=== PATIENT | female | born 1935 | race Caucasian/White ===

== ENCOUNTER 2022-09-19 15:11 | Outpatient (RCR) | payer MEDICARE, BC, SELFPAY | END 2023-05-02 23:59 | disposition home or self-care (01) | PROVIDERS: PCP Family Medicine; Visit Provider Orthopaedic Surgery Orthopaedic Surgery of the Spine | DX: R26.9 Unspecified abnormalities of gait and mobility (principal); Z51.89 Encounter for other specified aftercare | CPT/HCPCS: 97110; 97162 ==

== ENCOUNTER 2023-09-02 10:45 | Outpatient (RCR) | payer MEDICARE, BC, SELFPAY | END 2023-09-10 14:03 | disposition home or self-care (01) | PROVIDERS: PCP Family Medicine; Visit Provider Family Medicine | DX: M54.2 Cervicalgia (principal); R26.81 Unsteadiness on feet; Z51.89 Encounter for other specified aftercare | CPT/HCPCS: 97110; 97112; 97140; 97162; 97164 ==

== ENCOUNTER 2024-01-28 17:18 | Outpatient (CLI) | payer MEDICARE, BC, SELFPAY | END 2024-01-28 17:19 | disposition home or self-care (01) | LOC: AMB 01-31 03:30 | PROVIDERS: PCP Family Medicine; Visit Provider Student in an Organized Health Care Education/Training Program | DX: S29.9XXA Unspecified injury of thorax, initial encounter (principal); W18.30XA Fall on same level, unspecified, initial encounter; Y92.008 Other place in unspecified non-institutional (private) residence as the place of occurrence of the external cause | CPT/HCPCS: A0425; A0429 ==

== ENCOUNTER 2024-01-28 17:33 | Emergency (ER) | payer MEDICARE, BC, SELFPAY ==
[2024-01-28] VITALS (14 sets, daily range): BP systolic 115–190; BP diastolic 61–91; PULSE 60–74; RESP 16; TEMP 36.5; O2SAT 97–98; BMI 26.1
--- NOTE | 2024-01-28 17:49 | CT_ITS ---
Patient: KARELY JASMINE Facility:?[facility] RIS Patient ID:?[id number] Site Patient ID:?[id number]. Site :?[id number] Study:?CT-Spine Lumbar W/O-01/28/2024 6:40:34 PM Ordering Physician:ANTHONY Final Report: CLINICAL HISTORY: Trauma. TECHNIQUE: Helical CT acquisition of the lumbar spine was performed. Coronal and sagittal reformations were performed and interpreted. COMPARISON: Lumbar spine radiographs dated 03/25/2023. FINDINGS: There is an acute appearing fracture involving the left-sided superior endplate of L1, with mild displacement of fracture fragments involving both the anterior and posterior cortex of the vertebral body, noting mild retropulsion of the posterior fracture fragment which appears to indent the left ventral thecal sac. There is mild (approximately 10-15%) loss of vertebral body height, asymmetric to the left. There is a subtle, minimally displaced fracture through the right transverse process of L2. Postsurgical changes related to prior L5-S1 posterior fusion with dual rods and transpedicular screws. Lumbar spondylosis with mild degenerative grade 1 anterolisthesis of L3 on L4. Decreased mineralization of the osseous structures. The paravertebral soft tissues are unremarkable. IMPRESSION: 1. Acute fracture of the left-sided superior endplate of L1, with mild (10-15%) loss of vertebral body height, with mild displacement of fracture fragments involving both the anterior and posterior cortex of the vertebral body. There is mild retropulsion of the posterior fracture fragment which likely indents the left ventral thecal sac. 2. Subtle, minimally displaced fracture through the right transverse process of L2. Please note that all CT scans at this facility use dose modulation, iterative reconstruction, and/or weight-based dosing when appropriate to reduce radiation dose to as low as reasonably achievable. Dictated by Geoffrey Sims MD @ 01/28/2024 7:02:17 PM Signed by:?Geoffrey Sims MD @01/28/2024 7:02:17 PM (Electronic Signature)
--- NOTE | 2024-01-28 17:52 | ED.BACK ---
HPI - Back Pain/Injury General Date Seen: 01/28/24 Chief Complaint: Back Injury/Pain Stated Complaint: Fall Time Seen by Provider: 01/28/24 17:34 Source: patient and EMS Mode of arrival: EMS Limitations: no limitations History of Present Illness HPI Narrative: patient is an 88-year-old female presenting to the emergency department for low back pain. She states she got of the car when she then quickly turned around and does know she does loss of balance so her shoes got stuck on the ground but she fell over falling into the wall. She states she did not hit her head but since the fall has been having lower back pain and has been unable to walk. She does have some lightheadedness and dizziness but this is normal for her not any different compared to her baseline. Due to the pain EMS was called and she was brought to the emergency department. Denies any numbness or weakness. Says the pain seems worse on the left side the lower back and goes straight across her back. Does not radiate anywhere else. Denies abdominal pain, chest pain, shortness of breath, weakness, numbness, fevers, chills. No other concerns noted Related Data Home Medications Medication Instructions Recorded Confirmed atorvastatin 20 mg tablet 20 mg PO QPM 01/28/24 01/28/24 omeprazole 20 mg capsule,delayed 20 mg PO DAILY 01/28/24 01/28/24 release Allergies Allergy/AdvReac Type Severity Reaction Status Date / Time oxycodone Allergy Verified 01/28/24 17:52 Review of Systems Status of ROS: Reports: 10 or more systems reviewed and unremarkable except as noted in History and below PFSH PFS Medical History Fracture of left wrist (08/20/12) ?S62.102A - Fracture of unspecified carpal bone, left wrist, initial encounter for closed fracture (ICD-10) Surgical History 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) ?Z96.659 - Presence of unspecified artificial knee joint (ICD-10) History of tonsillectomy ?Z90.89 - Acquired absence of other organs (ICD-10) History of section (~1961) ?Z98.891 - History of uterine scar from previous surgery (ICD-10) Status post cataract extraction and insertion of intraocular lens (03/20/13) ?Z98.49 - Cataract extraction status, unspecified eye (ICD-10) ?Z96.1 - Presence of intraocular lens (ICD-10) Social History Smoking Status: Never smoker Do you use any of these nicotine containing products: None Second hand tobacco smoke exposure: No How often do you have a drink containing alcohol: never AUDIT-C Alcohol total score: 0 Non-prescribed substance use: denies use service: No Exam Narrative: Exam Narrative: Const: Well-nourished, Well-developed, in mild distress Eyes: PERRL, no conjunctival injection, and symmetrical lids HENT: Atraumatic external nose and ears. Moist mucous membranes. Neck: Symmetric, trachea midline, No thyromegaly. CVS: RRR, No murmurs or gallops. Peripheral pulses 2+ and equal in all extremities RESP: Unlabored respiratory effort. Clear to auscultation bilaterally. GI: Nontender/Nondistended, No rebound or guarding. MSK:Extremities w/o deformity, tenderness palpation lower lumbar around L5 Skin: Warm, Dry. No rashes or lesions. Neuro: Normal Muscle tone, No focal neurological deficits. Psych: Awake, Alert, & Oriented x3. Appropriate mood and affect. Const: Vital Signs, click to edit/add: Vital Signs - 24 hr 01/28/24 17:43 01/28/24 18:51 01/28/24 19:00 Temperature 97.7 F Pulse Rate 62 61 Pulse Rate [Pulse Oximeter] 74 Respiratory Rate 16 Blood Pressure Blood Pressure [Ri ght Upper Arm] 190/77 H Pulse Oximetry 98 98 97 Oxygen Delivery Me thod Room Air 01/28/24 19:02 01/28/24 19:03 01/28/24 19:30 Temperature Pulse Rate 64 60 69 Pulse Rate [Pulse Oximeter] Respiratory Rate Blood Pressure 151/71 H Blood Pressure [Ri ght Upper Arm] Pulse Oximetry 97 97 97 Oxygen Delivery Me thod 01/28/24 19:31 01/28/24 19:32 01/28/24 20:00 Temperature Pulse Rate 70 68 69 Pulse Rate [Pulse Oximeter] Respiratory Rate Blood Pressure 148/71 H Blood Pressure [Ri ght Upper Arm] Pulse Oximetry 97 98 97 Oxygen Delivery Me thod 01/28/24 20:02 01/28/24 20:03 01/28/24 20:30 Temperature Pulse Rate 67 66 63 Pulse Rate [Pulse Oximeter] Respiratory Rate Blood Pressure 142/64 H Blood Pressure [Ri ght Upper Arm] Pulse Oximetry 98 98 98 Oxygen Delivery Me thod 01/28/24 20:31 01/28/24 20:45 Temperature Pulse Rate 65 73 Pulse Rate [Pulse Oximeter] Respiratory Rate Blood Pressure 139/61 115/91 H Blood Pressure [Ri ght Upper Arm] Pulse Oximetry 97 97 Oxygen Delivery Me thod Course Vital Signs Vital signs: Initial Vital Signs Temperature 97.7 F 01/28/24 17:43 Temperature Source Temporal Artery Scan 01/28/24 17:43 Pulse Rate 74 01/28/24 17:43 Pulse Rhythm Regular 01/28/24 17:43 Pulse Strength 3+ Normal 01/28/24 17:43 Respiratory Rate 16 01/28/24 17:43 Blood Pressure 190/77 H 01/28/24 17:43 Blood Pressure Mean 114 H 01/28/24 17:43 Blood Pressure Position Semi-Fowlers 01/28/24 17:43 Pulse Oximetry 98 01/28/24 17:43 Oxygen Delivery Method Room Air 01/28/24 17:43 Vital Signs Temperature 97.7 F 01/28/24 17:43 Pulse Rate 74 01/28/24 17:43 Respiratory Rate 16 01/28/24 17:43 Blood Pressure 190/77 H 01/28/24 17:43 Pulse Oximetry 98 01/28/24 17:43 Oxygen Delivery Method Room Air 01/28/24 17:43 Temperature 97.7 F 01/28/24 17:43 Pulse Rate 73 01/28/24 20:45 Respiratory Rate 16 01/28/24 17:43 Blood Pressure 115/91 H 01/28/24 20:45 Pulse Oximetry 97 01/28/24 20:45 Oxygen Delivery Method Room Air 01/28/24 17:43 Medications Administered Medications: Discontinued Medications Generic Name Dose Route Start Last Admin Trade Name Freq PRN Reason Stop Dose Admin Ketorolac Tromethamine 30 mg 01/28/24 17:49 01/28/24 17:59 Ketorolac 30 Mg/Ml Inj IM 01/28/24 17:50 30 mg ONCE ONE Administration MDM - Back Pain/Injury MDM Narrative Medical decision making narrative: patient is an 88-year-old female presenting after fall. By her description this sounds like it was a mechanical fall. While she does have lightheadedness dizziness this is her baseline. She is adamant she did not hit her head and has denied any neck pain. despite this, concerning her age, I do think is reasonable do a CT scan of her head and neck to make sure there are no other injuries. She will be given Toradol for pain. CT scan of her lumbar spine x-rays of her hip were ordered. CT scan of the head, cervical spine, pelvis shows no acute concerning abnormalities. A CT scan of the lumbar spine there were is a fracture of the L1 consistent with where her pain is with some retropulsed fragments are pushed against the thecal sac. I went to re-evaluate the patient in she is having no neurological symptoms right now. There is no signs of cauda equina syndrome at this time. Says the pain is tolerable and is dullness nature. Is not requesting any further pain medication. Considering and. Pressure on the thecal sac I would be hesitant to send this patient home as she could have worsening issues and should be seen by spine surgeon. Initially want to be transferred to [facility]. After speaking to them since she was a trauma she would have to go to [facility]. Due to that the patient would prefer [place] instead. [facility] was spoken to and I talked to the ED provider Dr. Menard. He accepted the patient for transfer. She will go by ground ambulance. She is agreeable to this plan. Imaging Data CT scan head: Attestation: I have reviewed the pertinent imaging results. Radiologist's impression: 1. No CT evidence of acute intracranial abnormality or closed head injury. 2. Senescent changes including generalized parenchymal volume loss and findings likely reflecting sequela of chronic small vessel ischemia. Please note that all CT scans at this facility use dose modulation, iterative reconstruction, and/or weight-based dosing when appropriate to reduce radiation dose to as low as reasonably achievable. Dictated by Geoffrey Sims MD @ 01/28/2024 6:50:[address] scan cervical spine: Attestation: I have reviewed the pertinent imaging results. Radiologist's impression: No acute displaced fracture or traumatic malalignment of the cervical spine. Please note that all CT scans at this facility use dose modulation, iterative reconstruction, and/or weight-based dosing when appropriate to reduce radiation dose to as low as reasonably achievable. Dictated by Geoffrey Sims MD @ 01/28/2024 6:53:[address] scan lumbar spine: Attestation: I have reviewed the pertinent imaging results. Radiologist's impression: 1. Acute fracture of the left-sided superior endplate of L1, with mild (10-15%) loss of vertebral body height, with mild displacement of fracture fragments involving both the anterior and posterior cortex of the vertebral body. There is mild retropulsion of the posterior fracture fragment which likely indents the left ventral thecal sac. 2. Subtle, minimally displaced fracture through the right transverse process of L2. Please note that all CT scans at this facility use dose modulation, iterative reconstruction, and/or weight-based dosing when appropriate to reduce radiation dose to as low as reasonably achievable. Dictated by Geoffrey Sims MD @ 01/28/2024 7:02:[address] scan pelvis: Attestation: I have reviewed the pertinent imaging results. Radiologist's impression: 1. No acute fracture involving the pelvis. 2. Postop changes L5-S1 and left hip. Please note that all CT scans at this facility use dose modulation, iterative reconstruction, and/or weight-based dosing when appropriate to reduce radiation dose to as low as reasonably achievable. Dictated by Ashkan Del Cid MD @ 01/28/2024 7:12:47 PM Discharge Plan Discharge Clinical Impression: Closed lumbar vertebral fracture Qualifiers: Encounter type: initial encounter Lumbar vertebra fracture level: L1 Fracture morphology: unspecified fracture morphology Qualified Code(s): S32.019A - Unspecified fracture of first lumbar vertebra, initial encounter for closed fracture Patient Disposition: Xfer Other Condition: Stable Prescriptions: No Action atorvastatin 20 mg tablet 20 mg PO QPM omeprazole 20 mg capsule,delayed release(DR/EC) 20 mg PO DAILY Stand Alone Forms: [employer] Info Instructions
--- NOTE | 2024-01-28 17:54 | CT_ITS ---
Patient: KARELY JASMINE Facility:?[facility] RIS Patient ID:?[id number] Site Patient ID:?[id number]. Site :?1935 Study:?CT-Head W/O-01/28/2024 6:36:58 PM Ordering Physician:ANTHONY Final Report: CLINICAL HISTORY Trauma. TECHNIQUE Standard helical CT image acquisition through the head was performed. COMPARISON Head CT dated 10/01/2020. FINDINGS No CT evidence of acute intracranial hemorrhage, extra-axial collection, mass effect or midline shift. Le-white matter differentiation is preserved. Age- appropriate [id number] generalized parenchymal with resultant prominence of cerebral sulci and the ventricular system. Patchy and confluent hypoattenuation in the white matter of both hemispheres likely reflects sequela of chronic small vessel ischemia. Intracranial atherosclerotic calcification. No displaced calvarial fracture. The orbits are unremarkable. The paranasal sinuses and mastoid air cells are well aerated. IMPRESSION 1. No CT evidence of acute intracranial abnormality or closed head injury. 2. Senescent changes including generalized parenchymal volume loss and findings likely reflecting sequela of chronic small vessel ischemia. Please note that all CT scans at this facility use dose modulation, iterative reconstruction, and/or weight-based dosing when appropriate to reduce radiation dose to as low as reasonably achievable. Dictated by Geoffrey Sims MD @ 01/28/2024 6:50:12 PM Signed by:?Geoffrey Sims MD @01/28/2024 6:50:12 PM (Electronic Signature)
--- NOTE | 2024-01-28 17:54 | CT_ITS ---
Patient: KARELY JASMINE Facility:?[facility] R[facility] Patient ID:?[id number] Site Patient ID:?[id number]. Site :?1935 Study:?CT-Spine Cervical W/O-01/28/2024 6:37:54 PM Ordering Physician:ANTHONY Final Report: CLINICAL HISTORY: Trauma. TECHNIQUE: Helical CT acquisition of the cervical spine was performed. Coronal and sagittal reformations were performed and interpreted. COMPARISON: None available. FINDINGS: There is no evidence of acute displaced fracture or traumatic malalignment of the cervical spine. The facets are well aligned. Vertebral body heights are maintained without evidence of significant compression deformity. No evidence of significant trauma at the craniocervical junction. Chronic appearing fracture the C7 spinous process. Advanced cervical spondylosis. Advanced degenerative changes involving the atlantodental articulation. The visualized prevertebral soft tissues are unremarkable. The visualized lung apices are unremarkable. IMPRESSION: No acute displaced fracture or traumatic malalignment of the cervical spine. Please note that all CT scans at this facility use dose modulation, iterative reconstruction, and/or weight-based dosing when appropriate to reduce radiation dose to as low as reasonably achievable. Dictated by Geoffrey Sims MD @ 01/28/2024 6:53:08 PM Signed by:?Geoffrey Sims MD @01/28/2024 6:53:08 PM (Electronic Signature)
[2024-01-28] MEDS: KETOROLAC 30 MG/ML inj IM (17:59)
--- NOTE | 2024-01-28 18:22 | CT_ITS ---
Patient: KARELY JASMINE Facility:?[facility] RIS Patient ID:?[id number] Site Patient ID:?[id number]. Site :?1935 Study:?CT-Pelvis W/O-01/28/2024 6:41:30 PM Ordering Physician:ANTHONY Final Report: INDICATION: Fell; lower back pain. TECHNIQUE: CT pelvis without intravenous contrast; coronal and sagittal reformats. FINDINGS: Posterior lumbar fusion L5-S1 with anatomic alignment and intact hardware. Internal fixation fracture left hip. No evidence of acute fracture or dislocation. No bone or soft tissue abnormalities. IMPRESSION: 1. No acute fracture involving the pelvis. 2. Postop changes L5-S1 and left hip. Please note that all CT scans at this facility use dose modulation, iterative reconstruction, and/or weight-based dosing when appropriate to reduce radiation dose to as low as reasonably achievable. Dictated by Ashkan Del Cid MD @ 01/28/2024 7:12:47 PM Signed by:?Ashkan Del Cid MD @01/28/2024 7:12:47 PM (Electronic Signature)
== END 2024-01-28 20:54 | disposition other institution (70) ==
PROVIDERS: Emergency Provider Student in an Organized Health Care Education/Training Program; PCP Family Medicine
DX: S32.019A Unspecified fracture of first lumbar vertebra, initial encounter for closed fracture (principal); W01.0XXA Fall on same level from slipping, tripping and stumbling without subsequent striking against object, initial encounter
CPT/HCPCS: 70450; 72125; 72131; 72192; 96372; 99283; 99285; J1885

== ENCOUNTER 2024-06-11 10:00 | Outpatient (RCR) | payer MEDICARE, BC, SELFPAY | END 2024-10-09 23:59 | disposition home or self-care (01) | PROVIDERS: PCP Family Medicine; Visit Provider Family Medicine | DX: H81.10 Benign paroxysmal vertigo, unspecified ear (principal); S32.011D Stable burst fracture of first lumbar vertebra, subsequent encounter for fracture with routine healing; M62.81 Muscle weakness (generalized); R26.9 Unspecified abnormalities of gait and mobility; R26.81 Unsteadiness on feet; Z51.89 Encounter for other specified aftercare | CPT/HCPCS: 97110; 97112; 97140; 97162 ==

== ENCOUNTER 2025-05-04 16:12 | Outpatient (RCR) | payer MEDICARE, BC, SELFPAY | END 2025-07-12 15:58 | disposition home or self-care (01) | PROVIDERS: PCP Family Medicine; Visit Provider Family Medicine | DX: H81.10 Benign paroxysmal vertigo, unspecified ear (principal); S32.011D Stable burst fracture of first lumbar vertebra, subsequent encounter for fracture with routine healing; R26.81 Unsteadiness on feet; Z51.89 Encounter for other specified aftercare | CPT/HCPCS: 97110; 97161 ==

== ENCOUNTER 2025-05-18 23:41 | Outpatient (CLI) | payer MEDICARE, BC, SELFPAY | END 2025-05-18 23:42 | disposition home or self-care (01) | PROVIDERS: PCP Family Medicine; Visit Provider Orthopaedic Surgery | DX: S49.91XA Unspecified injury of right shoulder and upper arm, initial encounter (principal); S79.911A Unspecified injury of right hip, initial encounter; W01.0XXA Fall on same level from slipping, tripping and stumbling without subsequent striking against object, initial encounter; Y92.038 Other place in apartment as the place of occurrence of the external cause | CPT/HCPCS: A0425; A0427 ==

== ENCOUNTER 2025-05-19 00:25 | Inpatient (IN) | payer MEDICARE, BC, SELFPAY ==
[2025-05-19] VITALS (24 sets, daily range): BP systolic 124–183; BP diastolic 51–78; PULSE 60–84; RESP 14–18; TEMP 36.1–36.9; O2SAT 94–100; BMI 24.9; BMI 25.5
--- OUTSIDE RECORDS SUMMARY | 2025-05-19 00:27 | XMS_ITS | Clinical Summary ---
Author Organization [facility] Address [address] [place] [address] Care Team Providers Care Cattle Manager Name Role Phone Beau Woods MD Primary Care Provider [phone] Source Comments You are receiving this document as you are listed as the primary care provider,follow-up provider, or the patient has been referred to you for consultation.This is in compliance with the Medicare andRegional Medical Centercaid EHR Incentive Program,which states Providers who transition their patient to another setting of careor provider of care or refers their patient to another provider of care shouldprovide summary care record for each transition of care or referral. [facility] Allerg[facility] No known active allergies Medications simvastatin (AKA ZOCOR) 20 MG tablet Take 20 mg by mouth nightly. 03/01/2015 Active Calcium Carbonate (CALCI-CHEW) 1250 (500 CA) MG chewable tablet Take 1 tablet by mouth daily (every 24 hours). 03/01/2015 Active omeprazole (AKA PRILOSEC) 10 MG capsule Take 10 mg by mouth daily (every 24 hours). 03/01/2015 Active omega-3 fatty acids (FISH OIL) 1000 MG capsule Take by mouth. 03/01/2015 Active Denosumab (PROLIA SC) 2 times yearly Active Active Problems No known active problems Social History Tobacco Use Types Packs/Day Years Used Date Smoking Tobacco: Former Cigarettes 1 22 0 03/01/1971 - 03/01/1993 Smokeless Tobacco: Never Comments Unknown Sex and Gender Information Value Date Recorded Sex Assigned at Not on file Legal Sex Female 11:50 PM CDT Gender Identity Not on file Sexual Orientation Not on file Last Filed Vital Signs Vital Sign Reading Time Taken Comments Blood Pressure 169/80 08/08/2022 11:23 AM CDT Pulse 72 08/08/2022 11:23 AM CDT Temperature - - Respiratory Rate - - Oxygen Saturation - - Inhaled Oxygen Concentration - - Weight 63.4 kg (139 lb 11.2 oz) 022 11:23 AM CDT Height 156.2 cm (5' 1.5) 08/08/2022 11 :23 AM CDT Body Mass Index 25.97 08/08/2022 11:23 AM CDT Plan of Treatment Health Maintenance Due Date Last Done Comments Medicare Annual Wellness Visit 1935 RSV Vaccine (1 - 1-dose 75+ series) 2012 COVID-19 Vaccine ( - season) 2024 01/29/2022, 06/09/2021, 12/20/2020, Additional history exists DTaP/Tdap/Td Vaccine (2 - Tdap) 08/16/2024 08/16/2014, 11/02/2004 Influenza Vaccine (#1) 2025 2, 06/27/2021, 06/24/2020, Additional history exists Pneumococcal Vaccine 50+ Yrs Completed 01/24/2015, 11/02/2004 Zoster/Shingles Vaccine Completed 09/25/20 18, 06/28/2018, 09/18/2007 Dexa Completed 08/23/2022, 10/31/2020 HepA Vaccine Aged Out No longer eligi ble based on patient's age to complete this topic HepB Vaccine Aged Out No longer eligi ble based on patient's age to complete this topic Hib Vaccine Aged Out No longer eligi ble based on patient's age to complete this topic MCV4 Vaccine Aged Out No longer eligi ble based on patient's age to complete this topic Meningococcal B Vaccine Aged Out No l onger eligible based on patient's age to complete this topic Procedures Procedure Name Priority Date/Time Associated Diagnosis Comments BONE DENSITY 08/23/2022 from Last 3 Months or Most Recently Relevant to Health Maintenance Results * BONE DENSITY (08/23/2022) Anatomical Region Laterality Modality Other us Interface Provider MD DUNAWAY/OTHER/AR Final Resu lt from Last 3 Months or Most Recently Relevant to Health Maintenance Insurance [id number] [facility] [place] [id number] MEDICARE BCBS MEDICARE SUPPLEMENT [id number] [place] [id number] Care Teams Cattle Manager Relationship Specialty Start Date End [place] [address] PCP - General Family Practice 08/08/22
--- OUTSIDE RECORDS SUMMARY | 2025-05-19 00:27 | XMS_ITS | Clinical Summary ---
Author Organization [employer] [facility] Address [address] [place] [address] Care Team Providers Care Urban Sociologist Name Role Phone Beau Woods MD Primary Care Provider Allergies Active Allergy Reactions Criticality Noted Date Comments Oxycodone Vomiting 01/08/2022 Patient states heavy chest Medications CALCIUM 600 + D 600 MG (1,500)-200 UNIT TABIndications:As ymptomatic postmenopausal status (age-related) (natural) take 2 pills a day 60 12 09/10/20 07 Active Additional Information Patient taking differently: 1 TabletOralTWICE DAILY WITH MEALS, Reported on 01/04/2025 Vvoyt-2-OOH-EPA-F tc Oil 1,000 mg (120 mg-180 mg) cap Take 1 Capsule by mouth once daily. Active acetaminophen (TYLENOL EXTRA STRGTH) 500 mg tabletIndications :Spondylolisthesi s of lumbar region,Spinal stenosis, lumbar region, with neurogenic claudication,Post operative pain after spinal surgery Take 2 Tablets (1,000 mg) by mouth every 6 hours. Max acetaminophen dose: 4000mg in 24 hrs. 0 03/18/20 22 Active atorvastatin 20 mg tabletIndications :Hyperlipidemia, unspecified hyperlipidemia type Take 1 Tablet (20 mg) by mouth at bedtime. 90 Tablet 3 03/31/20 25 Active omeprazole 20 mg Delayed-Release capsuleIndication s:Chronic GERD Take 1 Capsule (20 mg) by mouth once daily before a meal. 90 Capsule 3 03/31/20 25 Active Active Problems Problem Noted Date Diagnosed Date Neck pain, chronic 01/04/2025 Type 2 diabetes mellitus wit hout complication, without long-term current use of insulin 04/07/2024 Spinal stenosis, lumbar addy on, with neurogenic claudication 03/16/2022 Ocular migraine 08/14/2020 Overview (12/15/2020): MRI/MRA negative. Evaluation with eye provider agreed with diagnosis of ocular migraine. Skin cancer 08/09/2020 Overview (08/09/2020): Left Jaw line, BCC, superficial and nodular: Mohs 08/09/2020 [place] Adenomatous colon polyp 02/04/2018 Overview (02/04/2018): Colonoscopy 01/2018 polyp, repeat in 5 years Lumbar facet arthropathy with effusions 06/12/20 13 Total knee replacement status 03/28/2009 Osteoporosis, unspecified 08/11/2007 GERD (gastroesophageal reflux disease) Overview (12/15/2020): failed transitioin to Ranitidine 08/2017 Dyslipidemia BPPV (benign paroxysmal positional vertigo) Resolved Problems Problem Noted Date Diagnosed Date Resolved Date Spondylolisthesis of lumbar region 03/16/2022 02/22/2023 Prediabetes 12/25/2017 07/06/2024 Trochanteric bursitis of left hip 06/11/2013 02/22/2023 Gluteus medius tendinosis 06/11/2013 Benign positional vertigo 07/22/2009 terminal operations supervisor (current) use of anticoagulants 03/28/2009 12/15/2020 Overview (04/08/2009): INR goal 1.5-2.5 Osteoarthritis 10/08/2008 01/04/2025 Encounters Date Type Department Care Team Description 04/29/2025 Orders Only [facility] Scanner 1 scan: (1-Ord) [facility], 04/29/2025 04/15/2025 11:00 AM CDT Nurse/Clinic Staff Only [facility] [address] [place] [address] Immunization/Inject ion (PROLIA INJECTION ) 04/14/2025 Travel 04/05/2025 11:00 AM CDT Ancillary Procedure [facility] [address] [place] [address] 04/05/2025 Travel 03/31/2025 8:25 AM CDT Office Visit [facility] [address] [place] [address] [address] Beau Woods MD Medicare ANNUAL (subsequent) Visit (89 year old female); Lightheaded (Lightheaded/balanc e issues, pt reports falling x2 in the last month - leg weakness/tripping); Leg Pain/problem (Ankle/LE pain at night) 03/31/2025 Travel 03/26/2025 9:00 AM CDT Orders Only [facility] [address] [place] [address] [address] Lab, [place] 03/26/2025 Travel from Last 3 Months Immunizations Immunization Administration Dates Next Due AMB Influenza, IIV3 (Age >=3 years)(Flu Clinic Only) 08/20/2008 COVID-19 VACCINE SPIKEVAX (M ODERNA 50MCG/0.5ML) 12YO+ PFS 01/04/2025,07/06/2024,03/27/2024 COVID-19 vaccine (Wildfire Korea-Bio NTech 30mcg/0.3mL) 12YO+ BIVALENT PF, MDV 02/22/2023,08/29/2022 COVID-19 vaccine (Wildfire Korea-Bio NTech 30mcg/0.3mL) 12YO+ AIDAN-SUCROSE PF, MDV 01/29/2022 COVID-19 vaccine (Pfizer-Bio NTech 30mcg/0.3mL) PF, MDV 06/09/2021,12/20/2020,11/29/2020 Influenza A (H1N1), Inactivated 10/12/2009 Influenza RIV4 (Age 18+ Year s) PRESERV FREE 07/25/2019 Influenza Virus, Unspecified 07/14/2017 Influenza, High-dose Inactivated 024,07/13/2018,08/07/2017,08/15,08/16/2014 Influenza, High-dose Quadriv alent Inactivated 08/31/2023 Influenza, IIV3 (Age 6-35 mos) 09/03/2011 Influenza, IIV3 (Age >=3 years) 07/17/20 13,09/16/2010,08/20/2008,09/02,07/25/2006,09/03/2005,08/12/2004 ,08/02/2003 Influenza, IIV4 06/24/2020 Influenza, Inactivated AIIV4 (Age 65+ Years) Preserv Free 06/26/2022,06/27/2021 Pneumococcal Conj 20-valent (Prevnar 20) 02/22/2023 Pneumococcal Poly,23-Valent (Pneumovax) 11/02/2004,11/02/2004 Pneumococcal conj 13-Valent (Prevnar 13) 01/24/2015 RSV, Recombinant ADJ Reconst ituted (Arexvy 120MCG/0.5mL) 09/18/2024 Td (Age >=7 Years) 11/02/2004 Tdap 08/16/2014 Zoster (Shingrix-RZV, recombinant) 09/25/2018, Zoster (Zostavax-ZVL, live) 09/18/2007 Family History Medical History Relation Name Comments Psychiatric illness Child 1 Allergies Child 2 Other Child 3 migraine Dementia Father Heart attack Father Stroke Father Cancer Mother stomach Diabetes Mother Stroke Mother Cancer Other sibling Kidney cancer Sister Uterine cancer Sister Anesthesia Problem No Family History Cancer-breast No Family History Relation Name Status Comments Child 1 Child 2 Child 3 Father Mother Other Sister Social History Tobacco Use Types Packs/Day Years Used Date Smoking Tobacco: Former Cigarettes 1 29.8 1 962 - 07/17/1991 Smokeless Tobacco: Never Tobacco Cessation:Counseling Given: No Alcohol Use Standard Drinks/Week Comments Yes 0 (1 standard drink = 0.6 oz pur e alcohol) one glass of wine per day PHQ-2 Answer Date Recorded PHQ-2 TOTAL SCORE 1 03/31/2025 Social Connections Answer Date Recorded Do you often feel lonely or isolated from those around you? 0 03/31/2025 Alcohol Use Answer Date Recorded How often do you have a drink containing alcohol ? 4 12/07/2021 How many drinks containing a lcohol do you have on a typical day when you are drinking? 0 12/07/2021 How often do you have five or more drinks on one occasion? 0 12/07/2021 Financial Resource Strain Answer Date R ecorded Difficulty of Paying Living Expenses 3 03/31/2025 Difficulty of Paying Living Expenses Not on file 03/31/2025 Food Insecurity Answer Date Recorded Do you worry your food will run out before you are able to buy more? 1 03/31/2025 Transportation Needs Answer Date Record ed Does lack of transportation keep you from medica l appointments? 1 03/31/2025 Does lack of transportation keep you from work, meetings or getting things that you need? 1 03/31/2025 Housing Stability Answer Date Recorded What is your housing situation today? 1 03/31/2025 Utilities Answer Date Recorded Do you have trouble paying f or utilities (for example, heat, electricity, water, phone)? 1 03/31/2025 Comments No Sex and Gender Information Value Date Recorded Sex Assigned at Not on file Legal Sex Female 6:[address] Gender Identity Female 08/08/2020 10:33 AM CDT Sexual Orientation Not on file Obstetrics History Para Term AB IAB SAB Ectopic Multiple Livin g Live Births 5 4 4 Date Outcome GA Total Labor Labor/2nd/3rd Weight Sex Type Anes PTL Ilsa A1 A5 Name Clin Para Para Para Para Last Filed Vital Signs Vital Sign Reading Time Taken Comments Blood Pressure 133/83 03/31/2025 8:45 AM CDT Pulse 71 03/31/2025 8:45 AM CDT Temperature 36.4 C (97.6 F) 03/31/2024 11:27 AM CDT Respiratory Rate 18 03/31/2024 11:27 AM CDT Oxygen Saturation 98% 03/31/2025 8:45 AM CDT Inhaled Oxygen Concentration - - Weight 62.2 kg (137 lb 3.2 oz) 03/31/2025 8:45 A M CDT Height 154.9 cm (5' 0.98) 03/31/2025 8:45 AM CD T Body Mass Index 25.94 03/31/2025 8:45 AM CDT Plan of Treatment Upcoming Encounters Date Type Department Care Team (Late st Contact Info) Description 09/30/2025 8:[address] Office Visit [facility] [address] [place] [address] Beau Woods MD [address] [address] Health Maintenance Due Date Last Done Comments Tetanus booster 08/16/2024 08/16/2014, 11/02/2004 Influenza Vaccine (#1) 2025 , 06/26/2022, 06/27/2021, Additional history exists BMI (ht and wt on same day) for age 18+ 03/31/2026 03/31/2025, 03/27/2024, 02/22/2023, Additional history exists Depression screening for age 12+ 03/31/2026 03/31/2025, 03/27/2024, 02/22/2023, Additional history exists Medicare Wellness for age 65+ 04/01/2026 03/31/2025, 03/27/2024, 02/22/2023, Additional history exists Zoster (shingles) series for age 50+ Completed 09/25/2018, 06/28/2018, 09/18/2007 Pneumococcal series for age 50+ Completed 02/22/2023, 01/24/2015, 11/02/2004, Additional history exists RSV vaccine for adults or Completed 09/18/2024 COVID-19 vaccine series Completed 01/05/20, 07/06/2024, 03/27/2024, Additional history exists DEXA/DXA scan for age 65+ Completed 2024, 03/12/2023, 10/31/2020, Additional history exists Hepatitis B series for 19+ Aged Out N o longer eligible based on patient's age to complete this topic Medical Devices Implanted Type Area Medical Coding Specialist Device Identifier Shelf Expiration Date Model / Serial / Lot Screw Lmbr Post 7.5x40mm Solera 4.75 Az - [id number] Implanted:Qty : 2 on 03/16/2022 by Alexx Jones MD at [facility] N/A: Lumbar Vertebrae [employer] Sp[employer]Or[employer]o [id number] / / Set Screw Lmbr 4.73s57tw Solera 4.75 Ns Brk Off - [id number] Implanted:Qty : 4 on 03/16/2022 by Alexx Jones MD at [facility] N/A: Lumbar Vertebrae [employer] Spine/Ortho [id number] / / Screw Lmbr Post 7.5x35mm Solera 4.75 Va - [id number] Implanted:Qty : 2 on 03/16/2022 by Alexx Jones MD at [facility] N/A: Lumbar Vertebrae [employer] Spine/Ortho [id number] / / Bone 1-4mm 30cc Medtronic Chips Canclls Freeze Dried - [id number] Implanted:Qty : 1 on 03/16/2022 by Alexx Jones MD at [facility] N/A: Lumbar Vertebrae [employer] Spine/Ortho 04/18/2026 [id number] / [id number] / [id number] Spacer Lmbr 45t45av Capstone Tlif Titnm Coating - [id number] Implanted:Qty : 1 on 03/16/2022 by Alexx Jones MD at [facility] N/A: Lumbar Vertebrae Med[employer] Spine/Ortho 08/12/2028 [id number] / / [id number] Lasha Lmbr 30mmx4.75cm Solera 4.75 Cvd Co Cr - [id number] Implanted:Qty : 2 on 03/16/2022 by Alexx Jones MD at [facility] N/A: Lumbar Vertebrae [employer] Spine/Ortho [id number] / / Procedures Procedure Name Priority Date/Time Associated Diagnosis Comments SCAN-EYE EXAM 04/29/2025 12:00 AM CDT XR DXA BONE DENSITY 2 SITES AXIAL Routine 04/05/2025 11:11 AM CDT Osteoporosis, unspecified osteoporosis type, unspecified pathological fracture presence URINE ALBUMIN TO CREATININE RATIO, RANDOM Routine 03/26/2025 9:27 AM CDT Type 2 diabetes mellitus without complication, without long-term current use of insulin (HC) HEMOGLOBIN A1C MONITORING (POCT) Routine 03/26/2025 9:01 AM CDT Type 2 diabetes mellitus without complication, without long-term current use of insulin (HC) LIPID PANEL W REFLEX MEASURED LDL Routine 03/26/2025 8:59 AM CDT Type 2 diabetes mellitus without complication, without long-term current use of insulin (HC) BASIC METABOLIC PANEL Routine 03/26/2025 8:59 AM CDT Type 2 diabetes mellitus without complication, without long-term current use of insulin (HC) from Last 3 Months Results * SCAN-EYE EXAM (04/29/2025 12:00 AM CDT) us Scanner OTHER Final Result * (ABNORMAL) XR DXA BONE DENSITY 2 SITES AXIAL (04/05/2025 11:11 AM CDT) Anatomical Region Laterality Modality Spine, HIPS, HIPL, HIPR Other Impressions 04/12/2025 7:55 PM CDT Osteopenia. Due to the stability of the bone density, continue present medication if indicated. RECOMMENDATIONS: The National Osteoporosis Foundation recommends pharmacologic treatment for patients with T-scores of -2.5 or less, patients with prior history of fragility fractures, or patients with 10-year probability of greater than 3% at hips or greater than 20% of suffering major osteoporotic fractures. Recommend continued optimization of calcium and vitamin D intake through dietary means and/or supplementation and regular exercise. Continue current Denosumab (Prolia) medication treatment. Recheck DXA in 2 years. Noemy Nassar PA-C [facility] 04/12/2025 Narrative 04/12/2025 7:55 PM CDT For Patients: Results are automatically released to your [facility] account once available, in compliance with federal regulations. This means that you may see your results before your provider has had a chance to review them. Please allow 2-3 business days for your provider to comment on the results. XR DXA Bone Mineral Density (BMD) EXAM LOCATION: [address] [address] PATIENT NAME: Jennifer Nelson DATE OF : 1935 EXAM DATE: 04/05/2025 REQUESTING PROVIDER: Beua Woods MD GENDER AT : female HEIGHT: 5' 0.98 (03/31/2025) WEIGHT: 137 lb 3.2 oz (03/31/2025) MENOPAUSAL STATUS: Postmenopausal RACE/ETHNICITY: White RISK FACTORS: Family History of Osteoporosis, Height Loss (2 inches or more), History of Fragility Fracture (at a major site), Smoking (prior), and White Race CURRENT MEDICATION FOR BONE LOSS: Denosumab (Prolia) INDICATION: Follow-up of existing osteopenia COMPARISON DATE(S): 2022 DXA scans are compared to prior studies for a patient only when the two (or more) studies were performed on the same scanner. It is not possible to compare data generated on one scanner to data from another because there are not standards in DXA equipment. This applies even if the two scanners are made by the same guide dog instructor. PROCEDURE: Dual-energy x-ray absorptiometry performed with routine technique. Reporting is completed in the form of a T-score. The T-score represents the standard deviation from peak bone mass based on young healthy adult. A Z-score is used for diagnosis in premenopausal women, and for men under the age of 50. FINDINGS: RESULT LUMBAR SPINE L2 - L4 BMD: 1.125 g/cm2 T-Score: - 0.7 Z-Score: + 1.3 Change from prior in 2022: Increase 5.2%. RESULTS FEMUR Left femoral neck BMD: 0.801 g/cm2 T-Score: - 1.7 Z-Score: + 0.8 Change from prior in 2022: Increase 0.8%. Right femoral neck BMD: 0.819 g/cm2 T-Score: - 1.5 Z-Score: + 1.0 Change from prior in 2022: Increase 1.9%. WHO criteria: Normal: T-score at or above -1 SD Osteopenia: T-score between -1.1 and -2.4 SD Osteoporosis: T-score at or below -2.5 SD us Beau Woods MD DEXA Final Result * URINE ALBUMIN TO CREATININE RATIO, RANDOM (03/26/2025 9:27 AM CDT) ALB RAND URINE <12.0 mg/L 03/26/2025 6:43 PM CDT [facility] CREATININE,URINE 0.98 g/L 03/26/20 6:43 PM CDT [facility] ALBUMIN TO CREATININE RATIO,RAND UR 03/26/2025 6:43 PM CDT [facility] Comment:Urine Albumin below measurement range, unable to calculate. Urine URINE SPECIMEN / Unknown Non-Blood / Unknown 03/26/2025 9:27 AM CDT 03/26/2025 9:27 AM CDT Narrative [facility] - 03/26/2025 6:43 PM CDT If Albumin to Creatinine Ratio is elevated, consider the following: Elevations seen with incipient nephropathy associated with diabetes mellitus or hypertension. Stress, exercise,hematuria, and urinary tract infection may also produce elevated results. If clinically indicated, confirm with 24 Hour Albumin to Creatinine Ratio. us Beau Woods MD URINE Final Result Performing Organization Address City/[facility]/ZIP Co de Phone Number [facility] [address] [place] [address], [place] * HEMOGLOBIN A1C MONITORING (POCT) (03/26/2025 9:01 AM CDT) POC HEMOGLOBIN A1C 5.6 <6.0 % OF TOTAL HGB [facility] Comment: Any point of care results exhibiting inconsistency with the patient's clinical status should be repeated using a different testing method. Blood BLOOD SPECIMEN / Unknown 03/26/2025 9:01 AM CDT 03/26/2025 9:01 AM CDT us Beau Woods MD CHEMISTRY Final Result [facility] [address] [place] [address], [facility] [address] [place] [address] * (ABNORMAL) LIPID PANEL W REFLEX MEASURED LDL (03/26/2025 8:59 AM CDT) CHOLESTEROL, TOTAL 158 <200 mg/dL [facility] HDL CHOLESTEROL 46(L) > OR = 50 mg/dL [facility] TRIGLYCERIDES 185(H) <150 mg/dL [facility] LDL-CHOLESTEROL 84 mg/dL (calc) [facility] Comment: Reference range: <100 Desirable range <100 mg/dL for primary prevention; <70 mg/dL for patients with CHD or diabetic patients with > or = 2 CHD risk factors. LDL-C is now calculated using the Julien calculation, which is a validated novel method providing better accuracy than the Friedewald equation in the estimation of LDL-C. Bobby SS et al. KUNAL. 2013;310(19): 0291-0468 (http://education.AB Tasty/faq/RIF243) CHOL/HDLC RATIO 3.4 <5.0 (calc) [facility] NON HDL CHOLESTEROL 112 <130 mg/dL (calc) [facility] Comment: For patients with diabetes plus 1 major ASCVD risk factor, treating to a non-HDL-C goal of <100 mg/dL (LDL-C of <70 mg/dL) is considered a therapeutic option. Blood BLOOD SPECIMEN / Unknown 03/26/2025 8:59 AM CDT 03/26/2025 9:00 AM CDT Narrative [facility] - 03/27/2025 4:19 AM CDT FASTING:UNKNOWN FASTING: UNKNOWN us Beau Woods MD CHEMISTRY Final Result [facility] [address] [facility] [address] [place] [address], [facility] [address] [place] [address] * BASIC METABOLIC PANEL (03/26/2025 8:59 AM CDT) [facility] GLUCOSE 85 65 - 99 mg/dL [facility] Comment: Fasting reference interval UREA NITROGEN (BUN) 15 7 - 25 mg/dL [facility] CREATININE 0.85 0.60 - 0.95 mg/dL [facility] EGFR 66 > OR = 60 mL/min/1. 73m2 [facility] BUN/CREATININE RATIO SEE NOTE: 6 - 22 (calc) [facility] Comment: Not Reported: BUN and Creatinine are within reference range. SODIUM 141 135 - 146 mmol/L [facility] POTASSIUM 4.6 3.5 - 5.3 mmol/L [facility] CHLORIDE 108 98 - 110 mmol/L [facility] CARBON DIOXIDE 25 20 - 32 mmol/L [facility] ELECTROLYTE BALANCE 8 7 - 17 mmol/L (calc) [facility] CALCIUM 9.5 8.6 - 10.4 mg/dL [facility] Blood BLOOD SPECIMEN / Unknown 03/26/2025 8:59 AM CDT 03/26/2025 9:00 AM CDT Narrative [facility] - 03/27/2025 4:19 AM CDT FASTING:UNKNOWN FASTING: UNKNOWN Beau Woods MD CHEMISTRY Final Result [facility] [facility] [address] [facility] [address] [place] [address], [facility] [address] [place] [address] from Last 3 Months Insurance HC MEDICARE PPS [facility] MEDICARE PB ONLY [facility] MEDICARE PART A HB ONLY MEDICARE PART B HB ONLY Advance Directives Documents on File Type Date Recorded Patient Stock Room Manager Expl anation Healthcare Directive 03/23/2024 024 Healthcare Directive 03/09/2022 9:30 AM HE ALTHCARE DIRECTIVE Healthcare Directive 02/26/2022 10:19 AM H ealth care directive * Full Code (Latest Code Status on File) Date Activated Date Inactivated Comments 03/16/2022 5:11 PM 03/18/2022 4:21 PM Question Answer Comments Code Status Discussion: Per Existing Order Care Teams Urban Sociologist Relationship Specialty Start Date End Date Beau Woods MD [address] [place] [address] PCP - General Family Practice 09/09/17
--- NOTE | 2025-05-19 00:29 | ED.FALL ---
HPI - Fall General Time Seen by Provider: 00:29 Date Seen: 05/19/25 Chief Complaint: Extremity Pain/Injury, Upper Stated Complaint: fall Time Seen by Provider: 05/19/25 00:29 Source: patient and EMS Mode of arrival: EMS History of Present Illness HPI Narrative: Jennifer is a 89 yo female who presents to the emergency department by EMS for evaluation of a fall. Patient lives in assisting living with her spouse, states that she was walking in the kitchen with a cane when she tripped over her cane and fell. Patient states that she fell slowly down to the ground. Patient reports initially she hit and fell onto her right knee, then right hip, and then tried to catch herself with her right arm and hurt her right shoulder. Patient states she did not hit her head or lose consciousness. Patient denies any headache, neck pain, back pain, chest pain, shortness of breath, abdominal pain, denies any weakness, paresthesias. Patient was unable to get up after the fall. Patient is not on chronic anticoagulation. No other complaints. Related Data Home Medications ?Medication ?Instructions ?Recorded ?Confirmed atorvastatin 20 mg tablet 20 mg PO QPM 01/28/24 08/04/24 omeprazole 20 mg capsule,delayed 20 mg PO DAILY 01/28/24 08/04/24 release Previous Rx's ?Medication ?Instructions ?Recorded nirmatrelvir 300 mg (150 mg See Rx Instructions PO .COMPLEX 08/04/24 x2)-ritonavir 100 mg tablet,dose #30 ea pack (Paxlovid) Allergies Allergy/AdvReac Type Severity Reaction Status Date / Time oxycodone Allergy Verified 05/19/25 00:41 Review of Systems Narrative: Past medical history, past surgical history, medications, allergies, family history, and social history were reviewed with the patient. No additional pertinent items. A medically appropriate review of systems was performed with pertinent positives and negatives noted in HPI, all other systems negative. 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) ?Z96.659 - Presence of unspecified artificial knee joint (ICD-10) History of tonsillectomy ?Z90.89 - Acquired absence of other organs (ICD-10) History of section (~1962) ?Z98.891 - History of uterine scar from previous surgery (ICD-10) Status post cataract extraction and insertion of intraocular lens (03/20/13) ?Z98.49 - Cataract extraction status, unspecified eye (ICD-10) ?Z96.1 - Presence of intraocular lens (ICD-10) Social History Smoking Status: Never smoker Do you use any of these nicotine containing products: None Second hand tobacco smoke exposure: No How often do you have a drink containing alcohol: never AUDIT-C Alcohol total score: 0 Non-prescribed substance use: denies use service: No Exam Narrative: Exam Narrative: General: Afebrile, in distress 2/2 to pain HEENT: Normocephalic, atraumatic, conjunctiva normal. MMM Neck: non-tender, supple Cardio: regular rate. regular rhythm Resp: Normal work of breathing, no respiratory distress, lungs clear bilaterally, no wheezing, rhonchi, rales Chest/Back: no visual signs of trauma, no midline tenderness, no CVA tenderness Abdomen: soft, non distension, no tenderness, no peritoneal signs Neuro: alert and fully oriented. CN II-XII intact. Grossly normal strength and sensation in all extremities. MSK: No obvious deformities. +TTP right shoulder and right humerus. ROM at shoulder limited 2/2 to pain. full passive ROM at elbow, wrist, distally NVI, compartments soft, radial pulse present b/l. +TTP at right hip and patient notes pain with movement of right hip, no significant pain log roll but does have pain with flexion/extension. Distally NVI with pt and dp pulse present b/l. compartments soft. Integumentary/Skin: no rash visualized, normal color Psych: normal affect, normal behavior Const: Vital Signs, click to edit/add: Vital Signs - 24 hr 05/19/25 00:26 05/19/25 00:44 05/19/25 00:45 Temperature 98.3 F Pulse Rate 65 66 Pulse Rate [Pulse Oximeter] 67 Blood Pressure Blood Pressure [Le ft Upper Arm] 183/78 H Pulse Oximetry 97 97 97 Oxygen Delivery Me thod Room Air 05/19/25 00:52 05/19/25 01:00 05/19/25 01:15 Temperature Pulse Rate 65 69 65 Pulse Rate [Pulse Oximeter] Blood Pressure 165/74 H Blood Pressure [Le ft Upper Arm] Pulse Oximetry 97 97 98 Oxygen Delivery Me thod 05/19/25 02:07 05/19/25 02:15 05/19/25 02:30 Temperature Pulse Rate 68 64 66 Pulse Rate [Pulse Oximeter] Blood Pressure Blood Pressure [Le ft Upper Arm] Pulse Oximetry 100 96 95 Oxygen Delivery Me thod 05/19/25 02:45 Temperature Pulse Rate 68 Pulse Rate [Pulse Oximeter] Blood Pressure Blood Pressure [Le ft Upper Arm] Pulse Oximetry 96 Oxygen Delivery Me thod Course Vital Signs Vital signs: Initial Vital Signs Temperature 98.3 F 05/19/25 00:26 Temperature Source Temporal Artery Scan 05/19/25 00:26 Pulse Rate 67 05/19/25 00:26 Pulse Rhythm Regular 05/19/25 00:26 Blood Pressure 183/78 H 05/19/25 00:26 Blood Pressure Mean 113 H 05/19/25 00:26 Blood Pressure Position Semi-Fowlers 05/19/25 00:26 Pulse Oximetry 97 05/19/25 00:26 Oxygen Delivery Method Room Air 05/19/25 00:26 Vital Signs Temperature 98.3 F 05/19/25 00:26 Pulse Rate 67 05/19/25 00:26 Blood Pressure 183/78 H 05/19/25 00:26 Pulse Oximetry 97 05/19/25 00:26 Oxygen Delivery Method Room Air 05/19/25 00:26 Temperature 98.3 F 05/19/25 00:26 Pulse Rate 68 05/19/25 02:45 Blood Pressure 165/74 H 05/19/25 00:52 Pulse Oximetry 96 05/19/25 02:45 Oxygen Delivery Method Room Air 05/19/25 00:26 Medications Administered Medications: Discontinued Medications Generic Name Dose Route Start Last Admin Trade Name Freq PRN Reason Stop Dose Admin Acetaminophen 1,000 mg 05/19/25 01:03 05/19/25 01:17 Acetaminophen 500 Mg Tablet PO 05/19/25 01:04 1,000 mg ONCE ONE Administration Fentanyl 50 mcg 05/19/25 01:03 05/19/25 01:15 Fentanyl 100 Mcg/2 Ml Inj IVP 05/19/25 01:04 50 mcg ONCE ONE Administration MDM - Fall MDM Narrative Medical decision making narrative: Jennifer is a 89 yo female who presents to the emergency department by EMS for evaluation of a fall. Upon arrival patient is nontoxic appearing, afebrile, in distress secondary to pain. Patient hypertensive upon arrival with blood pressure 183/78, heart rate 67. Patient reports that she tripped over her cane, denies any weakness, dizziness, chest pain, shortness of breath. Patient states she did not hit her head, did not lose consciousness, is not on chronic anticoagulation. Differential diagnosis includes but is not limited to contusion versus fracture versus dislocation. Patient reports improvement of symptoms after IV fentanyl prior to arrival by EMS. Upon arrival patient was treated with Tylenol, additional doses of fentanyl provided. I personally reviewed interpreted x-rays of the right shoulder, elbow, hip, and knee which demonstrate minimally displaced fracture of the right humeral neck. Joint alignment is maintained. X-ray of the hip demonstrates comminuted fracture of the right superior pubic rami extending to the pubic body. Questionable nondisplaced fracture of the right inferior pubic ramus. I discussed results with patient and family. Patient placed in sling for comfort. Suspect likely non operative management with pain control, physical therapy. Given patient's age, pain recommend admission for pain control, physical therapy, Orthopedics to see in the morning. I discussed patient management with overnight [facility] provider Dr. Jolley who agrees with the plan. Medical Records Attestation: I reviewed the patient's medical records. Discharge Plan Discharge Clinical Impression: Closed fracture of neck of right humerus, Closed fracture of ramus of right pubis, Fall Patient Disposition: Admitted As Inpatient Condition: Stable
--- NOTE | 2025-05-19 01:04 | CRLHL7_ITS ---
For Patients: As a result of the Century Cures Act, medical imaging exams and procedure reports are released immediately into your electronic medical record. You may view this report before your referring provider. If you have questions, please contact your health care provider. INDICATION: Trauma, fall. TECHNIQUE: Right knee 2 views. COMPARISON: 04/17/2017. FINDINGS: Right knee arthroplasty. Hardware appears intact and appropriately seated. Bone alignment is normal. No sign of acute fracture. No significant joint effusion. Soft tissues are unremarkable. IMPRESSION: No acute osseous abnormality. Dictated by Dc Alcala MD @ 05/19/2025 2:20:06 AM (Electronically Signed)
--- NOTE | 2025-05-19 01:04 | CRLHL7_ITS ---
For Patients: As a result of the Century Cures Act, medical imaging exams and procedure reports are released immediately into your electronic medical record. You may view this report before your referring provider. If you have questions, please contact your health care provider. INDICATION: Trauma, fall. TECHNIQUE: Right shoulder 2 views. COMPARISON: None. FINDINGS: Minimally displaced fracture of the right humeral neck. Joint alignment is maintained. Acromioclavicular and glenohumeral joint degenerative changes. Partially visualized lungs are clear. IMPRESSION: Minimally displaced right humeral neck fracture. Dictated by Dc Alcala MD @ 05/19/2025 2:21:40 AM (Electronically Signed)
--- NOTE | 2025-05-19 01:04 | CRLHL7_ITS ---
For Patients: As a result of the Century Cures Act, medical imaging exams and procedure reports are released immediately into your electronic medical record. You may view this report before your referring provider. If you have questions, please contact your health care provider. INDICATION: Trauma, fall. TECHNIQUE: Pelvis and right hip 3 views. COMPARISON: CT pelvis 01/28/2024. FINDINGS: Comminuted fracture of the right superior pubic ramus extending to the pubic body. Questionable nondisplaced fracture of the right inferior pubic ramus. No dislocation. Bilateral hip degenerative changes. Lower lumbar instrumented fusion. Partially visualized left femoral hardware. IMPRESSION: 1. Comminuted fracture of the right superior pubic ramus extending to the pubic body. 2. Questionable nondisplaced fracture of the right inferior pubic ramus. Dictated by Dc Alcala MD @ 05/19/2025 2:24:13 AM (Electronically Signed)
--- NOTE | 2025-05-19 01:04 | CRLHL7_ITS ---
For Patients: As a result of the Cures Act, medical imaging exams and procedure reports are released immediately into your electronic medical record. You may view this report before your referring provider. If you have questions, please contact your health care provider. INDICATION: Trauma, fall. TECHNIQUE: Right elbow 4 views. COMPARISON: None. FINDINGS: No acute fractures or malalignment. Joint spaces are maintained. Soft tissues are unremarkable. IMPRESSION: No acute osseous abnormality. Dictated by Dc Alcala MD @ 05/19/2025 2:18:58 AM (Electronically Signed)
[2025-05-19] MEDS: ACETAMINOPHEN 500 MG TABLET 1000 MG PO (01:17)
--- NOTE | 2025-05-19 05:05 | PC.NURSE ---
Shift note: Patient arrived to the floor at 0340 on a wheelchair. Conscious, alert and oriented on arrival. She was admitted on account of fracture to the right shoulder and pelvis related to a fall at home. Pain level on admission was rated at 5. Pending ortho review this morning. Patient reported that pain level easily gets to 10 with activity but was given pain medication from ED which has helped with the pain. Patient has unstable gait and require wheelchair for ambulation and BSC. Reviewed at 0415 through [facility]. Patient has been bed since admission. Required no pain medication at this time. Vitally stable Telemetry applied and was NSR.
[2025-05-19 06:07] LABS: Hematocrit 34.4 % (33.0-51.0); Hemoglobin* 11.4 gm/dL (12.0-16.0); Immature Granulocytes Abs Auto 0.02 K/uL (0.00-0.30); Immature Granulocytes Pct Auto 0.2 %; Mean Corpuscular HGB Conc 33 gm/dL (32-36); Mean Corpuscular Hemoglobin 35 pg (26-34); Mean Corpuscular Volume 106 fL (80-100); RDW Coefficient of Variation % 12.1 % (11.5-15.5); Red Blood Count 3.26 m/uL (4.00-5.20); White Blood Count* 8.24 K/uL (4.50-11.00)
[2025-05-19 06:12] LABS: Lymphocytes Absolute Auto 0.80 K/uL (0.90-2.90); Slide Review Reflex No
--- NOTE | 2025-05-19 06:21 | W.PM.TELEH&P ---
Telehealth- H&P: HPI History of Present Illness Date Seen: 05/19/25 Chief complaint: fall Narrative: Jennifer Nelson is seen as an Interactive Telehealth visit. Jennifer Nelson is a 89 year old female With past medical history significant for osteoporosis/osteopenia, benign positional vertigo, HLP, hypertriglyceridemia who presented emergency department after an episode of fall. Patient reports she was using cane to walk and tripped over her cane and fell. She said she initially fell softly on her right knee then right hip and then while trying to catch herself she hurt her right shoulder. She is denying any other symptoms., No fever, chills, chest pain, abdominal pain, nausea or vomiting. She denies any neck pain. [facility] She complains of 8 out of 10 right hip pain. Also complaining of pain in her shoulder. Lab work in the emergency department showed white count 8.24, hemoglobin 11.4, hematocrit 34.4, platelets 183. BMP is pending. Shoulder x-ray showed minimally displaced fracture of the right humeral neck. Joint alignment is maintained. X-ray of right shoulder showed minimally displaced right humeral neck fracture. A sling was placed in the emergency department. Right knee x-ray showed hardware was intact no acute fracture seen. X-ray of the hip showed commuted fracture of the right superior pubic ramus extending to the pubic body. Questionable nondisplaced fracture of the right inferior pubic rami. Right elbow x-ray showed no acute fractures. Hospitalist service was asked admit the patient for pain control, PT OT evaluation. Orthopedics has not been consulted yet. Review of Systems Narrative: Complete ROS was performed, pertinent positives and negatives per HPI. 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) ?Z96.659 - Presence of unspecified artificial knee joint (ICD-10) History of tonsillectomy ?Z90.89 - Acquired absence of other organs (ICD-10) History of section (~1962) ?Z98.891 - History of uterine scar from previous surgery (ICD-10) Status post cataract extraction and insertion of intraocular lens (03/20/13) ?Z98.49 - Cataract extraction status, unspecified eye (ICD-10) ?Z96.1 - Presence of intraocular lens (ICD-10) Social History What is your current living situation?: I presently have a place to live Problems where you live: no known problems Problems where you live details: N/A In the past 12 months, utilities in danger of being shut off: no In past 12 months, lack of transportation kept you from medical appts, meetings, work, or getting things needed for daily living: no In the past 12 mos, have been you worried that your food would run out before you had money to buy more?: never true In the past 12 mos, the food you bought just didn't last and you didn't have money to buy more?: never true Highest level of school completed/degree received: Bachelor's degree Smoking Status: Former smoker Do you use any of these nicotine containing products: None Second hand tobacco smoke exposure: No How often do you have a drink containing alcohol: 2-3 times a week Alcohol type: wine How many standard drinks containing alcohol do you have on a typical day: 1 or 2 How often do you have six or more drinks on one occasion: Never AUDIT-C Alcohol total score: 3 Non-prescribed substance use: denies use How often does anyone, including family, friends and others, physically hurt you: never How often does anyone, including family, friends and others, insult or talk down to you: never How often does anyone, including family, friends and others, threaten you with harm: never How often does anyone, including family, friends and others, scream or curse at you: never service: No Meds Home Medications and Allergies Home Medications ?Medication ?Instructions ?Recorded ?Confirmed ?Type atorvastatin 20 mg tablet 20 mg PO QPM 01/28/24 08/04/24 History omeprazole 20 mg capsule,delayed 20 mg PO DAILY 01/28/24 08/04/24 History release nirmatrelvir 300 mg (150 mg See Rx Instructions PO .COMPLEX 08/04/24 08/04/24 Rx x2)-ritonavir 100 mg tablet,dose #30 ea pack (Paxlovid) Allergies Allergy/AdvReac Type Severity Reaction Status Date / Time oxycodone Allergy Verified 05/19/25 00:41 Exam Narrative Exam Narrative: Physical Exam GENERAL: ?vital signs reviewed, well developed and nourished, in no distress HEENT: pupils are equally reactive to light NECK: Supple HEART: Regular rate and rhythm without any rubs, murmurs, or gallops. LUNGS: Clear to auscultation bilaterally with good air movement throughout ABDOMEN: Observation from nurse assisted exam, abdomen appears soft, nontender, and nondistended with Positive bowel sounds noted. EXTREMITIES: + right shoulder sling, + pain on right lower ext. no edema. SKIN:? Observed warm and dry with color normal Const Vital Signs, click to edit/add: Vital Signs - 24 hr 05/19/25 00:26 05/19/25 00:44 05/19/25 00:45 Temperature 98.3 F Pulse Rate 65 66 Pulse Rate [Left Pulse Oximeter] Pulse Rate [Pulse Oximeter] 67 Respiratory Rate Blood Pressure Blood Pressure [Left Arm] Blood Pressure [Left Upper Arm] 183/78 H Pulse Oximetry 97 97 97 Oxygen Delivery Method Room Air 05/19/25 00:52 05/19/25 01:00 05/19/25 01:15 Temperature Pulse Rate 65 69 65 Pulse Rate [Left Pulse Oximeter] Pulse Rate [Pulse Oximeter] Respiratory Rate Blood Pressure 165/74 H Blood Pressure [Left Arm] Blood Pressure [Left Upper Arm] Pulse Oximetry 97 97 98 Oxygen Delivery Method 05/19/25 02:07 05/19/25 02:15 05/19/25 02:30 Temperature Pulse Rate 68 64 66 Pulse Rate [Left Pulse Oximeter] Pulse Rate [Pulse Oximeter] Respiratory Rate Blood Pressure Blood Pressure [Left Arm] Blood Pressure [Left Upper Arm] Pulse Oximetry 100 96 95 Oxygen Delivery Method 05/19/25 02:45 05/19/25 03:48 05/19/25 03:48 Temperature 97.8 F Pulse Rate 68 Pulse Rate [Left Pulse Oximeter] 66 Pulse Rate [Pulse Oximeter] Respiratory Rate 18 18 Blood Pressure Blood Pressure [Left Arm] 153/64 H Blood Pressure [Left Upper Arm] Pulse Oximetry 96 96 96 Oxygen Delivery Method Room Air Room Air 05/19/25 05:00 Temperature Pulse Rate 67 Pulse Rate [Left Pulse Oximeter] Pulse Rate [Pulse Oximeter] Respiratory Rate Blood Pressure Blood Pressure [Left Arm] Blood Pressure [Left Upper Arm] Pulse Oximetry Oxygen Delivery Method Hospitalist - H&P: Result Labs Labs: Short CBC 05/19/25 Range/Units 05:45 WBC 8.24 (4.50-11.00) K/uL Hgb 11.4 L (12.0-16.0) gm/dL Hct 34.4 (33.0-51.0) % Plt Count 183 (140-440) K/uL Assessment and Plan Assessment and plan (1) Fall: Status: Acute (2) Closed fracture of neck of right humerus: Status: Acute (3) Closed fracture of ramus of right pubis: Status: Acute Plan # Status post mechanical fall # Minimally displaced R humeral neck fracture # Community or superior pubic ramus fracture extending to pubic body # Questionable nondisplaced fracture of R inferior pubic ramus - admit this pt overnight obs - follow up basic labs - orthopedic consult - cont with pain control. - PT/Ot evaluation # HLp - resume home meds. # DVT proph - lovenox Total Time Spent Total Time Spent: 60 Telehealth: Statement Statement Telehealth Visit: Today's History and Physical is provided via interactive telehealth by Anayeli Rodriguez MD.? Patient is located at [facility].? Provider is located at [facility].? Nursing staff assisted with the patient's exam. The visit being done today meets criteria for a telehealth visit and the patient or patient?s parent/guardian is aware the visit is a telehealth visit. Camera Start Time: 04:16 Camera End Time: 04:29
[2025-05-19 06:22] LABS: Chloride* 108 mmol/L (96-114); Potassium* 3.9 mmol/L (3.6-5.1); Sodium* 138 mmol/L (135-149)
[2025-05-19 06:25] LABS: Anion Gap 8 mEq/L (7-15); Blood Urea Nitrogen* 20 mg/dL (7-30); Carbon Dioxide* 22 mmol/L (20-32); Creatinine* 0.7 mg/dL (0.5-1.5); Est. Creatinine Clearance* 29.91; Estimated Glomerular Filt Rate 84 ml/min
[2025-05-19 06:26] LABS: Calcium* 9.4 mg/dL (8.4-10.6); Glucose* 140 mg/dL (60-115)
[2025-05-19] MEDS: SODIUM CHLORIDE 0.9 % (FLUSH) 10 ML SYRINGE 5 ML IVF ×2 (08:01→20:48)
--- NOTE | 2025-05-19 09:20 | PM.ORCN ---
History of Present Illness HPI Time Seen by Provider: 08:50 Date Seen: 05/19/25 Consult date: 05/19/25 Requesting physician: Mica Pickard Chief complaint: fall Narrative: Jennifer is a pleasant 89 year-old female that sustained a fall yesterday (DOI: 05/18/25) when she tripped over her cane and landed onto her right side. Immediate right shoulder pain. Patient was transported to [facility] via EMS where imaging showed an acute right humeral neck fracture and right inferior pubic ramus fracture. Patient states she did not hit her head or lose consciousness. Patient was admitted and an Orthopedic consult was requested. This morning, Jennifer is resting comfortably in bed. Her daughter is present during our conversation. Jennifer c/o right shoulder pain and right hip/groin pain. She ranks her pain 0 to 2 at rest and 8 to 10 with movement. She shoulder appears to be more bothersome than her pelvis. Her pain improves with hydromorphone PRN and icing. She is currently wearing a sling. Denies numbness/tingling distally. At baseline, Jennifer ambulates with a cane or walker. Over the past several months, Jennifer has struggled with dizziness and an abnormal gait. She has been seeing Physical Therapy for assistance with her gait. Patient lives in an apartment, independent living. 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 No other family lives nearby. Patient's daughter, Madeline, lives in [place] and is currently in town. Initially, her plan was to fly home this week. 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) ?Z96.659 - Presence of unspecified artificial knee joint (ICD-10) History of tonsillectomy ?Z90.89 - Acquired absence of other organs (ICD-10) History of section (~1962) ?Z98.891 - History of uterine scar from previous surgery (ICD-10) Status post cataract extraction and insertion of intraocular lens (03/20/13) ?Z98.49 - Cataract extraction status, unspecified eye (ICD-10) ?Z96.1 - Presence of intraocular lens (ICD-10) Social History What is your current living situation?: I presently have a place to live Problems where you live: no known problems Problems where you live details: N/A In the past 12 months, utilities in danger of being shut off: no In past 12 months, lack of transportation kept you from medical appts, meetings, work, or getting things needed for daily living: no In the past 12 mos, have been you worried that your food would run out before you had money to buy more?: never true In the past 12 mos, the food you bought just didn't last and you didn't have money to buy more?: never true Highest level of school completed/degree received: Bachelor's degree Smoking Status: Former smoker Do you use any of these nicotine containing products: None Second hand tobacco smoke exposure: No How often do you have a drink containing alcohol: 2-3 times a week Alcohol type: wine How many standard drinks containing alcohol do you have on a typical day: 1 or 2 How often do you have six or more drinks on one occasion: Never AUDIT-C Alcohol total score: 3 Non-prescribed substance use: denies use How often does anyone, including family, friends and others, physically hurt you: never How often does anyone, including family, friends and others, insult or talk down to you: never How often does anyone, including family, friends and others, threaten you with harm: never How often does anyone, including family, friends and others, scream or curse at you: never service: No Meds Home Medications and Allergies Home Medications ?Medication ?Instructions ?Recorded ?Confirmed ?Type atorvastatin 20 mg tablet 20 mg PO QPM 01/28/24 08/04/24 History omeprazole 20 mg capsule,delayed 20 mg PO DAILY 01/28/24 08/04/24 History release nirmatrelvir 300 mg (150 mg See Rx Instructions PO .COMPLEX 08/04/24 08/04/24 Rx x2)-ritonavir 100 mg tablet,dose #30 ea pack (Paxlovid) Allergies Allergy/AdvReac Type Severity Reaction Status Date / Time oxycodone Allergy Verified 05/19/25 00:41 Ortho Exam Narrative Exam Narrative: Alert and oriented x3. No acute distress. Non-labored breathing. Currently wearing right shoulder sling. Right Shoulder Exam: No erythema, ecchymosis, effusion or other cutaneous changes. Exquisite tenderness over humeral head/deltoid muscle. Nontender: right clavicle, acromion, distal humerus, medial/lateral epicondyles, radius/ulna. Right shoulder ROM deferred. Right Elbow ROM: 10-120 degrees without elbow pain. CMS intact distally with 2+ radial pulse, pink, warm digits. Right hip exam: No abrasions nor open wounds. Passive forward flexion 30 degrees with right groin pain. Passive abduction 20-30 degrees with right groin pain. CMS intact with 2+ DP and PT pulses. [place], warm digits with brisk capillary refill. Const Vital Signs, click to edit/add: Vital Signs - 24 hr 05/19/25 00:26 05/19/25 00:44 05/19/25 00:45 Temperature 98.3 F Pulse Rate 65 66 Pulse Rate [Left Pulse Oximeter] Pulse Rate [Pulse Oximeter] 67 Respiratory Rate Blood Pressure Blood Pressure [Left Arm] Blood Pressure [Left Upper Arm] 183/78 H Pulse Oximetry 97 97 97 Oxygen Delivery Method Room Air 05/19/25 00:52 05/19/25 01:00 05/19/25 01:15 Temperature Pulse Rate 65 69 65 Pulse Rate [Left Pulse Oximeter] Pulse Rate [Pulse Oximeter] Respiratory Rate Blood Pressure 165/74 H Blood Pressure [Left Arm] Blood Pressure [Left Upper Arm] Pulse Oximetry 97 97 98 Oxygen Delivery Method 05/19/25 02:07 05/19/25 02:15 05/19/25 02:30 Temperature Pulse Rate 68 64 66 Pulse Rate [Left Pulse Oximeter] Pulse Rate [Pulse Oximeter] Respiratory Rate Blood Pressure Blood Pressure [Left Arm] Blood Pressure [Left Upper Arm] Pulse Oximetry 100 96 95 Oxygen Delivery Method 05/19/25 02:45 05/19/25 03:48 05/19/25 03:48 Temperature 97.8 F Pulse Rate 68 Pulse Rate [Left Pulse Oximeter] 66 Pulse Rate [Pulse Oximeter] Respiratory Rate 18 18 Blood Pressure Blood Pressure [Left Arm] 153/64 H Blood Pressure [Left Upper Arm] Pulse Oximetry 96 96 96 Oxygen Delivery Method Room Air Room Air 05/19/25 05:00 05/19/25 07:00 05/19/25 07:45 Temperature 97.8 F Pulse Rate 67 68 Pulse Rate [Left Pulse Oximeter] 64 Pulse Rate [Pulse Oximeter] Respiratory Rate 18 Blood Pressure Blood Pressure [Left Arm] 143/58 H Blood Pressure [Left Upper Arm] Pulse Oximetry 95 Oxygen Delivery Method Room Air 05/19/25 08:15 Temperature Pulse Rate Pulse Rate [Left Pulse Oximeter] 64 Pulse Rate [Pulse Oximeter] Respiratory Rate 18 Blood Pressure Blood Pressure [Left Arm] Blood Pressure [Left Upper Arm] Pulse Oximetry Oxygen Delivery Method Results Labs Labs: Laboratory Results - last 48 hr 05/19/25 05:45 WBC 8.24 RBC 3.26 L Hgb 11.4 L Hct 34.4 MCV 106 H MCH 35 H MCHC 33 RDW Coeff of Rita 12.1 Plt Count 183 Neut % (Auto) 83.3 H Lymph % (Auto) 9.5 L [place] % (Auto) 6.8 Eos % (Auto) 0.1 Baso % (Auto) 0.1 Neut # (Auto) 6.90 Lymph # (Auto) 0.80 L [place] # (Auto) 0.60 Eos # (Auto) 0.01 Baso # (Auto) 0.01 Abs Immat Gran (auto) 0.02 Imm/Tot Granulo (auto) 0.2 Sodium 138 Potassium 3.9 Chloride 108 Carbon Dioxide 22 Anion Gap 8 BUN 20 Creatinine 0.7 Estimated Creat Clear 29.91 Estimated GFR 84 Glucose 140 H Calcium 9.4 Diagnostic results Shoulder x-ray: report reviewed and image reviewed Elbow x-ray: report reviewed and image reviewed Hip x-ray: report reviewed and image reviewed Knee x-ray: report reviewed and image reviewed Additional Comments: 2-view right shoulder images were reviewed from [facility] dated 05/19/25. These show: an acute, minimally displaced right humeral neck fracture. 2-view right hip images werer reviewed from [facility] dated 05/19/25. These show: an acute, comminuted fracture of the right inferior pubic ramus. Assessment and Plan Assessment and plan (1) Fall: Problem comment: DOI: 05/18/25 Status: Acute Total time spent: Total time spent is greater than 50% in coordination of care (as documented) at patient's floor/unit and/or counseling patient: (2) Closed fracture of neck of right humerus: Problem comment: DOI: 05/18/25. Status: Acute Assessment and Plan: Images were reviewed with Jennifer and her daughter, Madeline. Non-operative treatment is recommended for this right humeral neck fracture. Jennifer will continue to wear her sling daily x 4-6 weeks. I recommend she remove this sling to work on elbow/forearm/wrist motion as tolerated and also pendulum exercises several times per day. No lifting greater than 3 lbs. No pushing, pulling, twisting right upper extremity. For pain management, I recommend hydromorphone, acetaminophen and frequent icing PRN. Total time spent: Total time spent is greater than 50% in coordination of care (as documented) at patient's floor/unit and/or counseling patient: (3) Closed fracture of ramus of right pubis: Problem comment: DOI: 05/18/25. Status: Acute Assessment and Plan: Images were reviewed with Jennifer and her daughter, Madeline. Non-operative treatment is recommended for this right inferior pubic ramus fracture. Weight bear as tolerated. Jennifer has an unsteady gait at baseline, which contributed to this fall. Due to the combination of these two fractures, she will be unable to utilize a walker likely for 6+ weeks. She may ambulate with a 4-prong cane using her left upper extremity. I also welcome any additional recommendations from Therapy. Jennifer would not be able to tolerate pressure on her elbow or any weight distributed through her right upper extremity. Patient will likely require discharge to SNF/short term rehab stay. Patient will follow-up with myself upon discharge from SNF or in approximately 2 weeks. All questions were answered. Phone Orthopedics with any questions or concerns. PT/OT consults. director of residential services consult. Total time spent: Total time spent is greater than 50% in coordination of care (as documented) at patient's floor/unit and/or counseling patient:
--- NOTE | 2025-05-19 10:36 | P.IMPN_ITS ---
Assessment and Plan Assessment and plan (1) Closed fracture of neck of right humerus: Problem comment: DOI: 05/18/25. Orthopedic team was consulted and they stated that her fractures are inoperable. P.T./OT Ordered regular diet Pain management Status: Acute (2) Closed fracture of ramus of right pubis: Problem comment: DOI: 05/18/25. Orthopedic team was consulted and they stated that her fractures are inoperable. P.T./OT Ordered regular diet Pain management Status: Acute (3) Fall: Problem comment: DOI: 05/18/25 Mechanical fall Status: Acute (4) Constipation: Problem comment: Ordered laxatives scheduled. Status: Acute Plan student support services director consulted for safe plan for discharge. Patient lives in an apartment, independent living. 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 No other family lives nearby. Patient's daughter, Madeline, lives in [place] and is currently in town. Initially, her plan was to fly home this week. Orthopedic team was consulted and they stated that her fractures are inoperable. P.T./OT Ordered regular diet Pain management Total Time Spent Total Time Spent: Today I spent 50 minutes seeing the patient, reviewing Expanse and EPIC notes/diagnostics, discussing the care plan with our care time that includes social work, PT/OT, pharmacy, RT, shelter and documenting my impressions and plan in the medical record. Subjective Date Seen: 05/19/25 Interval history: You her patient was seen and examined at bedside. Patient is doing well, she mentioned that her pain is controlled. She denies headache, spinning sensation, chest pain or shortness of breath, denies any urinary symptoms. No chills or fever. She is welling to start physical therapy/occupational therapy. She mentioned that her last bowel movement was 2-3 days ago and was open to take laxatives. Exam Narrative: Exam Narrative: Physical exam GENERAL: Comfortable, no acute distress. HEAD AND NECK: Atraumatic, normocephalic CARDIOVASCULAR: RRR. Normal S1, S2. No murmurs. RESPIRATORY: Clear to auscultation B/L. Good air entry B/L. No wheezes or rhonchi. GASTROINTESTINAL: Not distended, not tender to palpation. NEUROLOGY: Alert, awake, oriented X 3. Normal speech. MSK: Right humerus tender to palpation, ROM exam deferred, has a sling. Rt hip: no open wounds. PSYCH: Normal mood, normal affect. Const: Vital Signs, click to edit/add: Vital Signs - 24 hr 05/19/25 00:26 05/19/25 00:44 05/19/25 00:45 Temperature 98.3 F Pulse Rate 65 66 Pulse Rate [Left P ulse Oximeter] Pulse Rate [Pulse Oximeter] 67 Respiratory Rate Blood Pressure Blood Pressure [Le ft Arm] Blood Pressure [Le ft Upper Arm] 183/78 H Pulse Oximetry 97 97 [address] [facility] 05/19/25 00:52 05/19/25 01:00 05/19/25 01:15 Temperature Pulse Rate 65 69 65 Pulse Rate [Left P ulse Oximeter] Pulse Rate [Pulse Oximeter] Respiratory Rate Blood Pressure 165/74 H Blood Pressure [Le ft Arm] Blood Pressure [Le ft Upper Arm] Pulse Oximetry 97 97 [address] [facility] 05/19/25 02:07 05/19/25 02:15 05/19/25 02:30 Temperature Pulse Rate 68 64 66 Pulse Rate [Left P ulse Oximeter] Pulse Rate [Pulse Oximeter] Respiratory Rate Blood Pressure Blood Pressure [Le ft Arm] Blood Pressure [Le ft Upper Arm] Pulse Oximetry 100 96 [facility] 05/19/25 02:45 05/19/25 03:48 05/19/25 03:48 Temperature 97.8 F Pulse Rate 68 Pulse Rate [Left P ulse Oximeter] 66 Pulse Rate [Pulse Oximeter] Respiratory Rate 18 18 Blood Pressure Blood Pressure [Le ft Arm] 153/64 H Blood Pressure [Le ft Upper Arm] Pulse Oximetry 96 96 [address] [facility] Room Air 05/19/25 05:00 05/19/25 07:00 05/19/25 07:45 Temperature 97.8 F Pulse Rate 67 68 Pulse Rate [Left P ulse Oximeter] 64 Pulse Rate [Pulse Oximeter] Respiratory Rate 18 Blood Pressure Blood Pressure [Le ft Arm] 143/58 H Blood Pressure [Le ft Upper Arm] Pulse Oximetry [address] [facility] 05/19/25 08:15 Temperature Pulse Rate Pulse Rate [Left P ulse Oximeter] 64 Pulse Rate [Pulse Oximeter] Respiratory Rate 18 Blood Pressure Blood Pressure [Le ft Arm] Blood Pressure [Le ft Upper Arm] Pulse Oximetry Oxygen Delivery Me thod Labs Labs: Laboratory Results - last 24 hr 05/19/25 05:45 WBC 8.24 RBC 3.26 L Hgb 11.4 L Hct 34.4 MCV 106 H MCH 35 H MCHC 33 RDW Coeff of Rita 12.1 Plt Count 183 Neut % (Auto) 83.3 H Lymph % (Auto) 9.5 L [place] % (Auto) 6.8 Eos % (Auto) 0.1 Baso % (Auto) 0.1 Neut # (Auto) 6.90 Lymph # (Auto) 0.80 L [place] # (Auto) 0.60 Eos # (Auto) 0.01 Baso # (Auto) 0.01 Abs Immat Gran (auto) 0.02 Imm/Tot Granulo (auto) 0.2 Sodium 138 Potassium 3.9 Chloride 108 Carbon Dioxide 22 Anion Gap 8 BUN 20 Creatinine 0.7 Estimated Creat Clear 29.91 Estimated GFR 84 Glucose 140 H Calcium 9.4
[2025-05-19] MEDS: SENNOSIDES/DOCUSATE TABLET 1 TAB PO (11:29)
--- NOTE | 2025-05-19 14:15 | PC.SOCIAL ---
Discharge planning: Met with pt and dtr earlier today regarding d/c planning. Pt lives with her in an independent apartment at [address] from the [facility]. 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 He is not requiring physical assistance but she provides supervision to make sure he is safe. Pt states she and her went to an assisted living apartment for two months at [facility] and that this was a good experience but that she would like to go to the [facility] for transitional Care at discharge if this is an option. Pt would like to social work msw to request placement for herself and her in the same room if possible. Pt is aware this is a private pay stay. She states they have custodial care insurance that they have not yet met the deductible to use. Called and secure emailed information to Alena at the [facility] who states it is likely they have availability for pt and for tomorrow morning. family services worker to follow up as needed.
[2025-05-19] MEDS: ACETAMINOPHEN 325 MG TABLET 650 MG PO (14:24)
--- NOTE | 2025-05-19 15:47 | PC.SOCIAL ---
Discharge planning: ROBI spoke with Alena who states that she met with patient and family and that she could take both of them at [facility] and could take patient tomorrow, but would need orders and meds in place for him to come. Alena states that the patient is unsure about sharing a small room with her and so Alena does have space for them to have separate rooms. Alena informed ROBI that family would like information on [facility] too. Alena explains that the daughter is going to go to [facility] to take pictures to be able to show patient. SW to provide this information to ROBI who is working with this patient.
--- NOTE | 2025-05-19 16:38 | PC.SOCIAL ---
Discharge planning: Alena from [facility] enhanced assisted living has met with pt, dtr and and can accept pt tomorrow morning to a double room with her or a private room by herself tomorrow. Dtr will discuss options with pt and make a decision regarding which room they will accept for pt. Dtr is working on the potential of hiring help at home or placing pt's elsewhere as there is concern about whether the pt will be able to recover in the same room as her . curtain worker provided other options for the dtr to look into for pt's 's care including 24 hour home decorator care or placement at [facility] assisted living on the [facility]. Dtr is accepting of this information and is aware she will need to finalize placement for pt's from home. curtain worker to follow up as needed for pt's planned discharge to [facility] assisted living tomorrow morning.
--- NOTE | 2025-05-19 18:45 | PC.NURSE ---
end of shift pt is alert x4 she is forgetful at times. pt has fracture to the right shoulder and pelvis fracture otglo SHOOK saw her. she is ok to move with staff and PT and OT. she has pain 0-7 she got IV Dilaudid and later Tylenol. offered pain meds every 1-2 hours. she did not any anything later she did take some more Tylenol . she is up with 1 assist and walker sarah walker. she is a fall risk and alarms are on. she is eating drinking and voiding with no problems. Telemetry NSR. SL is patent
[2025-05-19] MEDS: TRAMADOL HCL 50 MG TABLET PO (19:40)
[2025-05-19] MEDS: ENOXAPARIN 40 MG/0.4 ML INJ SUBCUT (20:47)
[2025-05-20] MEDS: TRAMADOL HCL 50 MG TABLET PO ×2 (02:05→10:51)
[2025-05-20 03:45] VITALS: BP 124/50; PULSE 67; RESP 14; TEMP 36.5; O2SAT 93
[2025-05-20 06:52] VITALS: PULSE 64
--- NOTE | 2025-05-20 07:10 | PC.NURSE ---
End of shift: Pt pleasant, alert and oriented. VSS. Tele reads NSR. Pain rated 7/10 with movement, prn Tramadol given, pt stated improvement. Rt arm in sling and restricted. Pt 1a with sarah walker, tolerated well. Pt stated large BM during day shift, refused HS senna. Pt in bed, appears to be resting, call light within reach.?
[2025-05-20 07:30] VITALS: BP 138/61; PULSE 76; RESP 16; TEMP 36.8; O2SAT 93
[2025-05-20] MEDS: ACETAMINOPHEN 325 MG TABLET 650 MG PO (08:17)
[2025-05-20] MEDS: SENNOSIDES/DOCUSATE TABLET 1 TAB PO (08:18)
--- NOTE | 2025-05-20 10:12 | PM.DS1 ---
DS: Providers Provider Date Seen: 05/20/25 Date of admission: 05/19/25 03:37 Primary care physician: Beau Woods MD Admitting Clinician: Anayeli Rodriguez MD Consults: 05/19/25 04:31 Consult to Physical Therapy [CONS] Routine Comment: Reason(s) for PT Consult:: Evaluate and Treat Any Restrictions?:: See Comment 05/19/25 04:33 Consult to Occupational Therapy [CONS] Routine Comment: Reason(s) for OT Consult:: Evaluate and Treat Any Restrictions?:: See Comment Comment: weight bearing per ortho recommendations 05/19/25 07:02 Consult to Physician [CONS] Routine Comment: Consulting Provider: Orthopedics, [facility] Has provider been notified: No Attending Physician on discharge: Anayeli Rodriguez MD DS: Diagnosis Discharge Diagnosis (1) Closed fracture of neck of right humerus: Status: Acute Problem details: DOI: 05/18/25. Orthopedic team was consulted and they stated that her fractures are inoperable. P.T./OT Ordered regular diet Pain management 05/20: DC for rehab [place] [facility]. Pt will continue to wear her sling daily x 4-6 weeks. Ortho recommends she remove this sling to work on elbow/forearm/wrist motion as tolerated and also pendulum exercises several times per day. No lifting greater than 3 lbs. No pushing, pulling, twisting right upper extremity. For pain management, I recommend hydromorphone, acetaminophen and frequent icing PRN. (2) Closed fracture of ramus of right pubis: Status: Acute Problem details: DOI: 05/18/25. Orthopedic team was consulted and they stated that her fractures are inoperable. P.T./OT Ordered regular diet Pain management 05/20: DC for rehab [place] [facility]. Pt will continue to wear her sling daily x 4-6 weeks. Ortho recommends she remove this sling to work on elbow/forearm/wrist motion as tolerated and also pendulum exercises several times per day. No lifting greater than 3 lbs. No pushing, pulling, twisting right upper extremity. For pain management, I recommend hydromorphone, acetaminophen and frequent icing PRN. (3) Fall: Status: Acute Problem details: DOI: 05/18/25 Mechanical fall (4) Constipation: Status: Resolved Problem details: Ordered laxatives PRN. DS: Summary Hospital Course Hospital Course: Jennifer Nelson is a 89 year old female With past medical history significant for osteoporosis/osteopenia, benign positional vertigo, HLP, hypertriglyceridemia who presented emergency department after an episode of fall. Patient. X-ray of right shoulder showed minimally displaced right humeral neck fracture. A sling was placed in the emergency department. X-ray of the hip showed commuted fracture of the right superior pubic ramus extending to the pubic body. Questionable nondisplaced fracture of the right inferior pubic rami. Orthopedics has not been consulted and they recommended no surgery as her fractures are inoperable and recommended PT OT eval and treat. P.T./OT recommended short-term rehab at [place] [facility]. Status at Discharge Functional status at discharge: uses cane/walker Overall status at discharge: patient is progressing back to baseline Time Spent with Patient Time attestation: Total time spent providing and/or coordinating discharge services: Exam Narrative: Exam Narrative: GENERAL: Comfortable, no acute distress. HEAD AND NECK: Atraumatic, normocephalic CARDIOVASCULAR: RRR. Normal S1, S2. RESPIRATORY: Clear to auscultation B/L. Good air entry B/L. NEUROLOGY: Alert, awake, oriented X 3. Normal speech. MSK: Right humerus tender to palpation, ROM exam deferred, has a sling. Rt hip: no open wounds. PSYCH: Normal mood, normal affect. Const: Vital Signs, click to edit/add: Vital Signs - 24 hr 05/19/25 11:30 05/19/25 14:45 05/19/25 15:30 Temperature 97.0 F L 97.3 F L Pulse Rate Pulse Rate [Left P ulse Oximeter] 84 84 60 Respiratory Rate 18 18 18 Blood Pressure [Le ft Arm] 131/63 144/60 H Pulse Oximetry 97 97 Oxygen Delivery Me thod Room Air Room Air 05/19/25 15:54 05/19/25 16:05 05/19/25 19:40 Temperature 98.4 F Pulse Rate 73 Pulse Rate [Left P ulse Oximeter] 84 68 Respiratory Rate 18 18 Blood Pressure [Le ft Arm] 156/62 H Pulse Oximetry 95 Oxygen Delivery Me thod Room Air 05/19/25 22:55 05/19/25 23:00 05/19/25 23:05 Temperature 98.4 F Pulse Rate 72 Pulse Rate [Left P ulse Oximeter] 72 72 Respiratory Rate 14 14 Blood Pressure [Le ft Arm] 124/51 L Pulse Oximetry 94 Oxygen Delivery Me thod Room Air 05/20/25 03:45 05/20/25 06:52 05/20/25 07:30 Temperature 97.7 F 98.2 F Pulse Rate 64 Pulse Rate [Left P ulse Oximeter] 67 76 Respiratory Rate 14 16 Blood Pressure [Le ft Arm] 124/50 L 138/61 Pulse Oximetry 93 93 Oxygen Delivery Me thod Room Air Room Air 05/20/25 07:30 Temperature Pulse Rate Pulse Rate [Left P ulse Oximeter] 76 Respiratory Rate 16 Blood Pressure [Le ft Arm] Pulse Oximetry Oxygen Delivery Me thod Discharge Plan Discharge Disposition: [facility] Date of Admission: 05/19/25 03:37 Attending Provider on Discharge: Mica Pickard Consulting Providers: Andre Jensen; Chelsy Villareal; Laurent Michael; Doris Ospina; Harvey York; Michel Ortez; Hema Hunter Primary Care Provider: Beau Woods Condition: Stable Anticipated Discharge Date/Time: 05/20/25 09:58 Discharge Medications: New acetaminophen 325 mg Tablet 650 mg PO Q8H PRN15 Days Qty: 90 0RF sennosides-docusate sodium [Stool Softener-Laxative] 8.6-50 mg Tablet 1 tab PO BID PRN (Reason: constipation) 15 Days Qty: 30 0RF tramadol 50 mg Tablet 50 mg PO Q8H PRN (Reason: Pain) 4 Days Qty: 12 0RF Continued atorvastatin 20 mg tablet 20 mg PO QPM omeprazole 20 mg capsule,delayed release(DR/EC) 20 mg PO DAILY Discharge Orders: Discharge Order (Routine); Ordered 05/20/25 Ordered By: Mica Pickard Additional Instructions: You will continue to wear your sling daily x 4-6 weeks. Orthopedic team recommends you remove this sling to work on elbow/forearm/wrist motion as tolerated and also pendulum exercises several times per day. No lifting greater than 3 lbs. No pushing, pulling, twisting right upper extremity. Frequent icing per need may help with pain management. You need to follow-up with your primary care physician in 1-2 weeks. Activity Level: No strenuous activity Activity Detail: You will continue to wear your sling daily x 4-6 weeks. Orthopedic team recommends you remove this sling to work on elbow/forearm/wrist motion as tolerated and also pendulum exercises several times per day. No lifting greater than 3 lbs. No pushing, pulling, twisting right upper extremity. Frequent icing per need may help with pain management. Discharge Diet: Heart Healthy (2 gm sodium, low fat) Follow Up Appointments: Beau Woods MD [Primary Care Provider, [facility]] Forms: [facility] Info Instructions Admit to: SNF Discharge Potential: Good Length of Stay: <30 days Can use facility standing orders?: Yes Code Status: Full Code TEDs: Bilateral Knee Rehab Potential: Fair Therapy: Physical Therapy and Occupational Therapy Therapy Orders: Evaluate and Treat Oxygen: No Urinary Catheter: No
--- NOTE | 2025-05-20 11:29 | PC.SOCIAL ---
Discharge planning: Pt has been accepted for admit to [facility] enhanced assisted living for admit today. Pt had requested yesterday if social worker palliative care could look into possible options at [facility]. This morning, social worker palliative care confirmed there are no available appropriate bed for pt or respite care bed for currently on the [facility]. cash office worker soke with Alean GARNER at the [facility] who confirms she is able to accept pt to a double room she will share with her , today and has arranged for van waste picker at 11:30 today. Met with pt and dtr who are aware and agree with this plan. Dtr is planning to stay in town for a few days to assist pt and in getting settled into the assisted living. cash office worker to email requested community information on other assisted living options and home care options if needed for the future, to [email or web address], at [email or web address]. cash office worker answered all of pt and dtrs questions. Pt and dtr are aware of how to contact social worker palliative care if additional information is needed. Discharge orders were secure emailed to facility with receipt confirmed prior to discharge.
--- NOTE | 2025-05-20 11:33 | PC.NURSE ---
discharge. pt has been pleasant. pt is alert x4 she is forgetful at times. pt has fracture to the right shoulder and pelvis fracture. right shoulder is in a sling. she is up with 1 assist. PT and OT worked with her today. she has pain 0-5 she got po tramadol and po Tylenol. she is up with 1 assist and walker sarah walker. she is a fall risk and alarms are on. she is eating drinking and voiding with no problems. Telemetry NSR. SL is patent . went over discharge with pt. did nurse to nurse with gen. SL was discharge.
== END 2025-05-20 11:35 | DRG 563 ==
LOC: ED 02:56 → MEDSURG 03:38
PROVIDERS: Admitting Provider Internal Medicine; Emergency Provider Emergency Medicine; PCP Family Medicine; Visit Provider Internal Medicine
DX: S42.211A Unspecified displaced fracture of surgical neck of right humerus, initial encounter for closed fracture (principal); S32.511A Fracture of superior rim of right pubis, initial encounter for closed fracture; W01.0XXA Fall on same level from slipping, tripping and stumbling without subsequent striking against object, initial encounter; Y92.9 Unspecified place or not applicable; M81.0 Age-related osteoporosis without current pathological fracture; H81.10 Benign paroxysmal vertigo, unspecified ear; K59.00 Constipation, unspecified; R26.89 Other abnormalities of gait and mobility; E78.1 Pure hyperglyceridemia; E78.5 Hyperlipidemia, unspecified
CPT/HCPCS: 36415; 73030; 73080; 73502; 73560; 80048; 85025; 97110; 97116; 97161; 97165; 97530; 97535; 99285; A9270; J1171; J1650; J3010